=== PATIENT | female | born 1950 | race Caucasian/White ===

== ENCOUNTER 2019-10-18 13:50 | Emergency (ER) | payer MEDICARE, MEDICAID ==
[~2019-10-18 13:50] MED LIST: ALBU8HFA PO; ASPI-1264 PO; HYDR-4383 PO; HYDR1TAB PO; ONDA4TAB6 PO
--- NOTE | 2019-10-18 14:38 | NUR ---
NOT IN LOBBY TIMES 2
== END 2019-10-18 16:22 | disposition left against medical advice (07) ==
LOC: ER 13:51
DX: R05 Cough (principal); Z53.21 Procedure and treatment not carried out due to patient leaving prior to being seen by health care provider

== ENCOUNTER 2023-08-18 09:57 | Outpatient (CLI) | payer MEDICARE, MEDICAID | END 2023-08-18 23:59 | disposition home or self-care (01) | LOC: RAD 09:57 | PROVIDERS: ATTEND Student in an Organized Health Care Education/Training Program | DX: D17.23 Benign lipomatous neoplasm of skin and subcutaneous tissue of right leg (principal) | CPT/HCPCS: 76882 ==